=== PATIENT | female | born 1985 | race African-American/Black ===

== ENCOUNTER 2019-12-19 17:55 | Emergency (ER) | payer MEDICAID ==
[~2019-12-19] VITALS: Ht 167.6 cm; Wt 82.5 kg
[2019-12-19] MEDS ORDERED: ERYTHROMYCIN 0.5% 3.5 GM TUBE OPHTHALMIC OINTMENT OD ONE (18:45)
[2019-12-19] MEDS ORDERED: ACETAMINOPHEN/CODEINE 300-30 MG TABLET PO ONE (18:45)
[2019-12-19 19:00] VITALS: BP 113/62
== END 2019-12-19 19:13 | disposition home or self-care (01) ==
LOC: EMS 17:55
DX: H10.211 Acute toxic conjunctivitis, right eye (principal)

== ENCOUNTER 2021-03-09 13:10 | Emergency (ER) | payer MEDICAID, OTHER ==
[~2021-03-09] VITALS: Ht 160 cm; Wt 68.2 kg
[2021-03-09] MEDS ORDERED: NEOMYCIN/BACITRACIN/POLYMYXIN B OINTMENT PACKET TP ONE (13:45)
[2021-03-09] MEDS ORDERED: ACETAMINOPHEN 325 MG TABLET PO ONE (13:45)
[2021-03-09 14:27] VITALS: BP 119/61
== END 2021-03-09 14:29 | disposition home or self-care (01) ==
LOC: EMS 13:10
DX: T22.211A Burn of second degree of right forearm, initial encounter (principal); T31.0 Burns involving less than 10% of body surface; X13.1XXA Other contact with steam and other hot vapors, initial encounter; Y93.G3 Activity, cooking and baking; Y92.89 Other specified places as the place of occurrence of the external cause; Y99.8 Other external cause status
CPT/HCPCS: 16000; 99282; Z7502; Z7610

== ENCOUNTER 2023-06-15 08:30 | Emergency (ER) | payer MEDICAID, OTHER ==
[~2023-06-15] VITALS: Ht 160 cm; Wt 70.5 kg
[2023-06-15 08:37] VITALS: TEMP 98.5
[2023-06-15 08:56] LABS: COVID AG,FIA SOURCE NASAL SWAB
[2023-06-15 09:07] VITALS: BP 112/62; PULSE 84; RESP 16
[2023-06-15 09:15] LABS: SARS-COV2 (COVID) ANTIGEN,FIA Negative (Negative)
[2023-06-15 09:16] LABS: INFLUENZA TYPE B NEGATIVE FOR TYPE B (NEGATIVE)
[2023-06-15 09:22] LABS: INFLUENZA TYPE A POSITIVE FOR TYPE A (NEGATIVE)
[2023-06-15] MEDS ORDERED: OSEL75 PO (09:30)
== END 2023-06-15 09:52 | disposition home or self-care (01) ==
LOC: EMS 08:30
DX: J10.1 Influenza due to other identified influenza virus with other respiratory manifestations (principal); Z20.822 Contact with and (suspected) exposure to COVID-19
CPT/HCPCS: 87804; 99283